=== PATIENT | male | born 1990 | race African-American/Black ===

== ENCOUNTER 2020-03-07 06:33 | Emergency (ER) | payer OTHER ==
[~2020-03-07] VITALS: Ht 165.1 cm; Wt 74.8 kg
[2020-03-07] MEDS ORDERED: NORCO 5-325 TA1 EAC2 PO (07:39)
[2020-03-07 08:11] VITALS: BP 147/82
== END 2020-03-07 08:11 | disposition home or self-care (01) ==
LOC: ER 06:33
DX: S86.011A Strain of right Achilles tendon, initial encounter (principal); X50.1XXA Overexertion from prolonged static or awkward postures, initial encounter; Y93.67 Activity, basketball; Y92.89 Other specified places as the place of occurrence of the external cause; Y99.8 Other external cause status